=== PATIENT | male | born 1950 | race Caucasian/White ===

== ENCOUNTER → 2016-12-31 | Outpatient (CLI) | payer OTHER ==
[~2016-12-31] MED LIST: ALT/25 PO; ASPI1TAB83 PO; CHOL1CAP27 PO; DOXY-300 PO; EZET10TA63 PO; GEMF600T3 PO; IBUP-1050 PO; MULT-506 PO; OMEP20CA59 PO
[2016-12-31 13:37] LABS: ALT/SGPT 31 U/L (12-78); AST/SGOT 25 U/L (15-37); BLOOD UREA NITROGEN 24 mg/dl (7-18); BUN/CREATININE RATIO 21.6 (10-20); CALCIUM 8.4 mg/dl (8.5-10.1); CARBON DIOXIDE 29 mmol/L (21-32); CHLORIDE 110 mmol/L (98-107); GLUCOSE 92 mg/dl (70-99); POTASSIUM 4.2 mmol/L (3.5-5.1); SODIUM 143 mmol/L (136-145)
[2016-12-31 13:40] LABS: ALB/GLOB RATIO 1.2 (0.9-2); ALKALINE PHOSPHATASE 46 U/L (45-117); CHOLESTEROL 190 mg/dl (0-200); CHOLESTEROL/HDL RATIO 3.6; HDL CHOLESTEROL 53 mg/dl; LDL CHOLESTEROL CALCULATED 109 mg/dl; TRIGLYCERIDES 138 mg/dl (0-150); VERY LOW DENSITY LIPOPROT CALC 28 mg/dl
== END | disposition home or self-care (01) ==
LOC: C.LABPBG 08:21
PROVIDERS: ATTEND Internal Medicine
DX: E78.5 Hyperlipidemia, unspecified (principal)

== ENCOUNTER → 2017-01-04 | Outpatient (CLI) | payer OTHER | END | disposition home or self-care (01) | LOC: C.LABPBG 13:55 | PROVIDERS: ATTEND Internal Medicine | DX: Z11.59 Encounter for screening for other viral diseases (principal) ==

== ENCOUNTER → 2018-02-07 | Outpatient (CLI) | payer OTHER ==
[~2018-02-07] MED LIST changes: -ALT/25 PO; +ASPCH81X PO; -ASPI1TAB83 PO; +ATOR10TA82 PO; +CHOL1000 PO; -CHOL1CAP27 PO; -DOXY-300 PO; -EZET10TA63 PO; -GEMF600T3 PO; -IBUP-1050 PO; +METO-478 PO; -MULT-506 PO; -OMEP20CA59 PO; +PRLSR20 PO
[2018-02-07 13:40] LABS: BASO % 0.7 %; BASO ABS # 0.03 K/uL (0-0.2); EOS % 1.6 %; EOS ABS # 0.07 K/uL (0-0.5); HEMATOCRIT 42.5 % (42-52); HEMOGLOBIN 14.4 g/dL (14.0-18.0); IG# 0.01 K/uL (0.00-0.02); LYMPH % 29.9 %; LYMPH ABS # 1.35 K/uL (1.2-3.4); MEAN CORPUSCULAR HEMOGLOBIN 31.5 pg (25-34); MEAN CORPUSCULAR HGB CONC 33.9 g/dl (32-36); MEAN PLATELET VOLUME 10.4 fL (7.4-10.4); MONO % 8.2 %; MONO ABS # 0.37 K/uL (0.11-0.59); NEUT % 59.4 %; NEUT ABS # 2.68 K/uL (1.4-6.5); PLATELET COUNT 216 K/uL (130-400); RED CELL DISTRIBUTION WIDTH CV 13.1 % (11.5-14.5); RED CELL DISTRIBUTION WIDTH SD 44.4 fL (36.4-46.3); WHITE BLOOD COUNT 4.51 K/uL (4.8-10.8)
[2018-02-07 13:55] LABS: ALT/SGPT 33 U/L (12-78); AST/SGOT 30 U/L (15-37); BLOOD UREA NITROGEN 22 mg/dl (7-18); CALCIUM 8.5 mg/dl (8.5-10.1); CARBON DIOXIDE 31 mmol/L (21-32); CHOLESTEROL 162 mg/dl (0-200); CREATININE 1.08 mg/dl (0.60-1.40); GLUCOSE 98 mg/dl (70-99); SODIUM 139 mmol/L (136-145)
[2018-02-07 14:07] LABS: ALKALINE PHOSPHATASE 48 U/L (45-117); LDL CHOLESTEROL CALCULATED 76 mg/dl; TOTAL PROTEIN 7.3 gm/dl (6.4-8.2)
== END | disposition home or self-care (01) ==
LOC: C.LABPBG 09:51
PROVIDERS: ATTEND Internal Medicine
DX: I10 Essential (primary) hypertension (principal); E78.5 Hyperlipidemia, unspecified; I42.9 Cardiomyopathy, unspecified; L72.0 Epidermal cyst

== ENCOUNTER → 2018-02-08 | Day surgery (SDC) | payer OTHER ==
[2018-01-31 12:01] VITALS: Ht 185.4 cm; Wt 90.9 kg
[~2018-02-08] VITALS: Ht 185.4 cm; Wt 90.9 kg
[~2018-02-08] MED LIST changes: +ACETAMINOPHEN 325 MG TAB ONE; +CLINDAMYCIN PHOS 150 MG/ML 2 ML VIAL IV SCH; +LACTATED RINGER'S 1000ML 1,000 ML IV SCH; +LIDOCAINE HCL 1% 20 ML VIAL ONE; +NURSING VERBAL MED ORDER ONE; +SODIUM CHLORIDE 0.9% 1000ML 1,000 ML IV SCH
--- NOTE | 2018-02-08 06:47 | History & Physical Bridge - [place] ---
H&P Re-Evaluation Bridge Note: I have examined the patient, reviewed the History & Physical and in the interval since the performance of the History & Physical I have noted the following changes of clinical significance: No changes noted pt is ASA II
--- NOTE | 2018-02-08 07:30 | [facility] Operative Report ---
Operative Report Operative Date Feb 08, 2018. Pre-Operative Diagnosis Scalp Epidermoid Cyst Post-Operative Diagnosis Same as pre-op Procedure(s) Performed Excision of Epidermoid cyst of scalp Surgeon Airplane Inspector Surgeon(s) None Estimated Blood Loss 5ML Findings 1.5 cm cyst Specimens A.Epidermoid cyst of scalp Drains None Anesthesia Type Local Complication(s) none Disposition Recovery Room / PACU I attest to the content of the Intraoperative Record and any orders documented therein. Any exceptions are noted below.
[2018-02-08 07:40] VITALS: TEMP 36.4
--- NOTE | 2018-02-08 07:44 | Discharge Instructions-SurgCtr ---
Discharge Instructions Date of Service Feb 08, 2018. Visit Reason for Visit: Scalp Epidermoid Cyst Discharge Discharge Diagnosis / Problem: epidermoid cyst Discharge Goals Goal(s): Decrease discomfort, Improve function, Improve disease control Medications Stopped Medications Name(s): asa stopped x 1 week. Activity Recommendations Activity Limitations: as noted below Lifting Limitations: gradually increase as tolerated (light activity for 1 week ) Exercise/Sports Limitations: until after follow-up appointment May Resume Sexual Activity: when tolerated Shower/Bathe: no limitations (may shower and wash hair) Driving or Machine Use: no limitations Anesthesia . Post Anesthesia Instructions: If you have had General Anesthesia or IV Sedation: * Do not drive today. * Resume driving when surgeon permits. * Do not make important decisions or sign legal documents today. * Call surgeon for: 1. Temperature elevations greater than 101 degrees F. 2. Uncontrollable pain. 3. Excessive bleeding. 4. Persistent nausea and vomiting. 5. Medication intolerance (nausea, vomiting or rash). * For nausea and vomiting use only clear liquids such as: tea, soda, bouillon until nausea subsides, then gradually increase diet as tolerated. * If you have any concerns or questions, call your surgeon's office. If physician is unavailable and it is an emergency, call 911 or go to the nearest emergency room. . Instructions / Follow-Up Instructions / Follow-Up SPECIAL CARE INSTRUCTIONS: * Cover incisions and change daily for comfort/drainage. may leave uncovered * May use ibuprofen for pain as tolerated. Or plain Tylenol- Acetaminophen * Expect some swelling and bruising. Call your doctor if: * Temperature above 101 degrees * Pain not relieved by pain medicine ordered * There is increased drainage or redness from any incision * You have any unanswered questions or concerns [phone]. FOLLOW UP VISIT: If not already scheduled, please call the office for a follow-up visit. for next week- some suture removal OFFICE PHONE NUMBER: Dr. Azar Office Diet Recommendations Home Diet: resume previous diet Procedures Procedures Performed: Excision of Epidermoid cyst of scalp Pending Studies Studies pending at discharge: no Medical Emergencies . Who to Call and When: Medical Emergencies: If at any time you feel your situation is an emergency, please call 911 immediately. . Non-Emergent Contact Non-Emergency issues call your: Primary Care Provider, Surgeon . . "Provider Documentation" section prepared by Bryson Azar. .
[2018-02-08 08:02] VITALS: BP 122/74; PULSE 47; O2SAT 97
--- NOTE | 2018-02-08 08:36 | OPERATIVE REPORT ---
DATE OF OPERATION: 02/08/2018 NAME OF OPERATION: Excision of epidermoid cyst from the scalp, 1.5 cm. STAFF SURGEON: Dr. Azar. ANESTHESIA: 1% plain lidocaine strict local. DESCRIPTION OF PROCEDURE: The patient was brought in the operating room and placed on the operating table in supine position. His hair around the top of the scalp was clipped over the cyst. The site was anesthetized using 1% plain lidocaine. Then, an elliptical incision made carrying dissection down excising the entire cyst which was approximately 1.5 cm. After appropriate hemostasis, the skin was reapproximated using 3-0 Prolene suture and then the Dermabond was applied. The patient was transferred to recovery area in stable condition. I attest to the content of the Intraoperative Record and any orders documented therein. Any exception s are noted below.
== END | disposition home or self-care (01) ==
LOC: X.SURG 06:21
PROVIDERS: ATTEND Surgery
DX: L72.11 Pilar cyst (principal); K21.9 Gastro-esophageal reflux disease without esophagitis; I25.10 Atherosclerotic heart disease of native coronary artery without angina pectoris; E78.5 Hyperlipidemia, unspecified; I10 Essential (primary) hypertension; Z85.46 Personal history of malignant neoplasm of prostate; Z84.1 Family history of disorders of kidney and ureter; Z82.49 Family history of ischemic heart disease and other diseases of the circulatory system; Z79.82 Long term (current) use of aspirin; Z88.0 Allergy status to penicillin; Z88.2 Allergy status to sulfonamides; Z88.8 Allergy status to other drugs, medicaments and biological substances

== ENCOUNTER → 2018-02-09 | Outpatient (CLI) | payer OTHER ==
[~2018-02-09] MED LIST changes: -ACETAMINOPHEN 325 MG TAB ONE; -CLINDAMYCIN PHOS 150 MG/ML 2 ML VIAL IV SCH; -LACTATED RINGER'S 1000ML 1,000 ML IV SCH; -LIDOCAINE HCL 1% 20 ML VIAL ONE; -NURSING VERBAL MED ORDER ONE; -SODIUM CHLORIDE 0.9% 1000ML 1,000 ML IV SCH
--- NOTE | 2018-02-09 14:22 | DIAGNOSTIC IMAGING REPORT ---
RENAL ULTRASOUND HISTORY: Abnormal CT. N28.1 Complex renal cyst [id number] COMPARISON: Abdomen and pelvis CT 05/25/2014. FINDINGS: Right kidney: 11.2 cm. The lower pole is partially obscured by bowel gas. No hydronephrosis. Normal corticomedullary differentiation and cortical thickness. Left kidney: 11.8 cm. No hydronephrosis. Normal corticomedullary differentiation and cortical thickness. A 1.4 x 1.4 x 1.3 cm heterogeneous lesion within the upper pole. This is stable in size. This demonstrates both hypoechoic per components. There may be a small amount of calcification within this lesion. Bladder: No bladder wall thickening. Only the right ureteral jet was identified during the examination. IMPRESSION: A 1.4 x 1.4 x 1.3 cm heterogeneous lesion within the upper pole the left kidney. This is stable compared to the 2013 examination. Although technically indeterminate, the long-term stability favors a complex cyst. However, an additional one year follow-up is recommended to ensure stability. Electronically signed by: Leighton Adams M.D. 02/09/2018 2:21 PM Dictated Date/Time: 02/09/2018 2:18 PM
== END | disposition home or self-care (01) ==
LOC: C.ULTR 13:07
PROVIDERS: ATTEND Internal Medicine
DX: N28.1 Cyst of kidney, acquired (principal)

== ENCOUNTER → 2018-06-02 | Outpatient (CLI) | payer OTHER ==
[2018-06-02 16:57] LABS: BASO % 0.4 %; BASO ABS # 0.02 K/uL (0-0.2); EOS % 2.4 %; EOS ABS # 0.11 K/uL (0-0.5); HEMATOCRIT 42.3 % (42-52); HEMOGLOBIN 14.3 g/dL (14.0-18.0); LYMPH % 23.7 %; LYMPH ABS # 1.11 K/uL (1.2-3.4); MEAN CELL VOLUME 93.8 fL (80-100); MEAN CORPUSCULAR HEMOGLOBIN 31.7 pg (25-34); MEAN CORPUSCULAR HGB CONC 33.8 g/dl (32-36); MEAN PLATELET VOLUME 10.4 fL (7.4-10.4); MONO % 9.6 %; MONO ABS # 0.45 K/uL (0.11-0.59); NEUT % 63.9 %; NEUT ABS # 2.99 K/uL (1.4-6.5); PLATELET COUNT 212 K/uL (130-400); RED CELL DISTRIBUTION WIDTH CV 13.2 % (11.5-14.5); RED CELL DISTRIBUTION WIDTH SD 45.2 fL (36.4-46.3); WHITE BLOOD COUNT 4.68 K/uL (4.8-10.8)
[2018-06-02 17:16] LABS: ALBUMIN 3.8 gm/dl (3.4-5.0); ALKALINE PHOSPHATASE 53 U/L (45-117); ALT/SGPT 40 U/L (12-78); AST/SGOT 25 U/L (15-37); BLOOD UREA NITROGEN 17 mg/dl (7-18); CALCIUM 8.9 mg/dl (8.5-10.1); CARBON DIOXIDE 24 mmol/L (21-32); CREATININE 0.98 mg/dl (0.60-1.40); GLUCOSE 89 mg/dl (70-99); POTASSIUM 3.6 mmol/L (3.5-5.1); SODIUM 139 mmol/L (136-145); TOTAL PROTEIN 7.4 gm/dl (6.4-8.2)
== END | disposition home or self-care (01) ==
LOC: C.LABPBG 13:31
PROVIDERS: ATTEND Family Medicine
DX: R53.1 Weakness (principal); R19.7 Diarrhea, unspecified; R53.81 Other malaise